=== PATIENT | female | born 1950 | race Caucasian/White ===

== ENCOUNTER 2019-01-29 08:17 | Emergency (ER) | payer OTHER ==
[~2019-01-29] VITALS: Ht 152.4 cm; Wt 81.2 kg
[2019-01-29 08:59] LABS: ABSOLUTE NEUTROPHILS 6.1 thou/uL (1.4-8.2); BASOPHILS 0.7 % (0.0-2.0); EOSINOPHILS 3.7 % (0.0-3.0); HEMOGLOBIN 14.8 gm/dL (12.0-15.0); LYMPHOCYTES 20.9 % (24.0-44.0); MCH 29.4 pg (26.0-34.0); MCHC 33.7 g/dL (28.0-37.0); MONOCYTES 8.1 % (1.0-8.0); PLATELET COUNT 216 thou/uL (150-400); POLYS 66.6 % (36.0-66.0); RBC 5.05 mil/uL (4.20-5.00); RDW 13.4 % (10.5-14.5); WBC 9.1 thou/uL (4.0-11.0)
[2019-01-29 09:44] LABS: ANION GAP 10 mmol/L (7-16); BUN 9 mg/dL (7-18); CALCIUM 9.6 mg/dL (8.5-10.1); CHLORIDE 102 mmol/L (98-107); CO2 26 mmol/L (21-32); CREATININE 0.7 mg/dL (0.6-1.0); GLUCOSE 119 mg/dL (74-106); POTASSIUM 3.1 mmol/L (3.5-5.1); SODIUM 138 mmol/L (136-145)
[2019-01-29 09:56] LABS: ALBUMIN 4.2 g/dL (3.4-5.0); DIRECT BILIRUBIN 0.2 mg/dL (<0.1-0.2); SGOT 22 U/L (15-37); SGPT 42 U/L (30-65); TOTAL BILIRUBIN 0.8 mg/dL (<0.1-1.0); TOTAL PROTEIN 8.2 g/dL (6.4-8.2); TROPONIN-I <0.06 ng/mL (<0.06)
[2019-01-29 12:03] VITALS: BP 159/64
--- NOTE | 2019-01-30 08:26 | EKG ---
[place] [address] [facility] [place] [address] ELECTROCARDIOGRAM REPORT Name: ANTWON MACIAS [facility] [id number] Admission: 01/29/19 Attend Phys: Discharge: 01/29/19 Date of : 48 Report #: [id number] THIS REPORT FOR: //name// [facility] ED Test Date: 2019-01-29 Test Time: 08:32:22 Pat Name: ANTWON MACIAS Department: Room: Gender: F Galley Boy: KF : 1950 Requested By: Steffany Bloom Order Number: [id number] MD: Anthony Morrell Measurements Intervals [place] Rate: 75 P: 19 NC: 175 QRS: -11 QRSD: 171 T: 156 QT: 463 QTc: 518 Interpretive Statements Sinus rhythm Left bundle branch block Baseline wander in lead(s) I,II,aVR No previous ECG available for comparison Electronically Signed On 01-30-2019 8:26:32 [employer] by Anthony Morrell [email or web address] <ELECTRONICALLY SIGNED> By: Anthony Morrell MD, [facility] 01/30/1926 1 1 Anthony Morrell MD, [facility] /EPI
== END 2019-01-29 12:08 | disposition home or self-care (01) ==
LOC: ER 08:17
PROVIDERS: Emergency Medicine
DX: R11.2 Nausea with vomiting, unspecified (principal); R42 Dizziness and giddiness; I10 Essential (primary) hypertension; E78.00 Pure hypercholesterolemia, unspecified